=== PATIENT | male | born 1960 | race Two or more races ===

== ENCOUNTER 2017-09-04 05:45 | Emergency (ER) | payer OTHER ==
[~2017-09-04] VITALS: Ht 172.7 cm; Wt 73.0 kg
[2017-09-04] MEDS ORDERED: SODIUM CHLORIDE 0.9% 1,000 ML IV ONE (07:12)
[2017-09-04] MEDS ORDERED: MORPHINE SULFATE 4 MG/ML CPJ (NOT FOR IM USE) IV STA (07:12)
[2017-09-04] MEDS ORDERED: ONDANSETRON HCL 4MG/2ML VIAL IV STA (07:12)
[2017-09-04 08:36] LABS: HEMATOCRIT. 30.7 % (42.0-52.0); HEMOGLOBIN. 10.2 g/dL (14.0-18.0); MEAN CORPUSCULAR HEMOGLOBIN 34.3 pg (28.0-32.0); MEAN CORPUSCULAR VOLUME 102.8 fL (80.0-94.0); MEAN PLATELET VOLUME 7.9 fl (7.4-10.4); PLATELET 141 x1000/uL (130-400); RED BLOOD CELL COUNT 2.98 mill/uL (4.7-6.1); RED CELL DISTRIBUTION WIDTH 15.7 % (11.6-14.6)
[2017-09-04 08:41] LABS: INR 1.1; PROTHROMBIN TIME 10.9 sec (9.4-11.6)
[2017-09-04 08:47] LABS: CARBON DIOXIDE 27 mEq/L (21-32); CHLORIDE 96 mEq/L (98-107)
[2017-09-04 09:00] LABS: PLATELET ESTIMATE NORMAL
[2017-09-04 09:26] LABS: CREATINE KINASE 84 IU/L (39-308)
[2017-09-04 10:10] VITALS: BP 171/119
== END 2017-09-04 10:20 | disposition home or self-care (01) ==
LOC: ER 05:45
DX: S42.202A Unspecified fracture of upper end of left humerus, initial encounter for closed fracture (principal); D53.9 Nutritional anemia, unspecified; I10 Essential (primary) hypertension; W01.0XXA Fall on same level from slipping, tripping and stumbling without subsequent striking against object, initial encounter; Y93.89 Activity, other specified; Y99.8 Other external cause status; Y92.89 Other specified places as the place of occurrence of the external cause; Z87.891 Personal history of nicotine dependence
CPT/HCPCS: 29105; 36415; 71045; 73030; 73060; 80053; 82550; 85025; 85610; 96361; 96374; 96375; 99285; J2270; J2405; A4565; J7030

== ENCOUNTER 2017-09-06 23:34 | Emergency (ER) | payer SELFPAY ==
[~2017-09-06] VITALS: Ht 177.8 cm; Wt 78.0 kg
[2017-09-07] MEDS ORDERED: SODIUM CHLORIDE 0.9% 250 ML IV ONE (07:51)
[2017-09-07 08:16] LABS: HEMATOCRIT. 26.8 % (42.0-52.0); HEMOGLOBIN. 9.2 g/dL (14.0-18.0); MEAN CORPUSCULAR HEMOGLOBIN 35.6 pg (28.0-32.0); MEAN CORPUSCULAR VOLUME 103.5 fL (80.0-94.0); MEAN PLATELET VOLUME 7.1 fl (7.4-10.4); PLATELET 248 x1000/uL (130-400); RED BLOOD CELL COUNT 2.59 mill/uL (4.7-6.1); RED CELL DISTRIBUTION WIDTH 15.1 % (11.6-14.6)
[2017-09-07 08:21] LABS: CHLORIDE 93 mEq/L (98-107)
[2017-09-07 08:35] LABS: CARBON DIOXIDE 26 mEq/L (21-32); ETHANOL BLOOD < 10 mg/dL
[2017-09-07 08:37] LABS: PLATELET ESTIMATE NORMAL
[2017-09-07 09:39] LABS: *AMPHETAMINES SCREEN URINE NEGATIVE (NEGATIVE); *BARBITURATES SCREEN URINE NEGATIVE (NEGATIVE); *BENZODIAZEPINES SCREEN URINE NEGATIVE (NEGATIVE); *COCAINE SCREEN URINE NEGATIVE (NEGATIVE); CANNABINOID URINE SCREEN NEGATIVE (NEGATIVE); METHADONE URINE SCREEN NEGATIVE (NEGATIVE); OPIATES URINE SCREEN NEGATIVE (NEGATIVE); PHENCYCLIDINE URINE SCREEN NEGATIVE (NEGATIVE)
[2017-09-07] MEDS ORDERED: FOLIC ACID 1 MG, THIAMINE HCL 100 MG, MVI, ADULT NO.1 10 ML in DEXTROSE 5% WATER 1,000 ML IV ONE ×4 (10:15)
[2017-09-07] MEDS ORDERED: KETOROLAC 30MG/ML VIAL IV ONE (11:15)
[2017-09-07 11:36] VITALS: BP 143/99
== END 2017-09-07 12:45 | disposition home or self-care (01) ==
LOC: ER 23:34
DX: S42.292A Other displaced fracture of upper end of left humerus, initial encounter for closed fracture (principal); H10.9 Unspecified conjunctivitis; E86.0 Dehydration; R42 Dizziness and giddiness; I10 Essential (primary) hypertension; F10.229 Alcohol dependence with intoxication, unspecified; E87.6 Hypokalemia; E87.1 Hypo-osmolality and hyponatremia; D53.1 Other megaloblastic anemias, not elsewhere classified; Y90.0 Blood alcohol level of less than 20 mg/100 ml
CPT/HCPCS: 29105; 36415; 80053; 80305; 83690; 85025; 93005; 96361; 96365; 96366; 96375; 99285; G0482; J1885; J3411; J3490; J7030; J7070; Z7610; A4565; J7050